=== PATIENT | male | born 1965 | race Two or more races ===

== ENCOUNTER 2017-07-21 08:59 | Emergency (ER) | payer BC ==
[2017-07-21 09:07] VITALS: BMI 31.0
[2017-07-21 09:11] VITALS: BP 138/97; PULSE 67; TEMP 97.8
[2017-07-21 09:20] LABS: PH,URINE 5.5 (4.5-8); URINE APPEARANCE Clear; URINE BILIRUBIN Negative (NEGATIVE); URINE BLOOD Negative (NEGATIVE); URINE GLUCOSE (UA) Negative (NEGATIVE); URINE KETONE Negative (NEGATIVE); URINE LEUK ESTERASE Negative (NEGATIVE); URINE NITRITE Negative (NEGATIVE); URINE PROTEIN Negative (NEGATIVE); URINE UROBILINOGEN 0.2 (0.2-1.0)
[2017-07-21 09:21] LABS: URINE COLOR YELLOW
[2017-07-21] MEDS ORDERED: KETOROLAC TROMETHAMINE 30 MG/1 ML VIAL IVPUSH ONE (09:25)
[2017-07-21] MEDS ORDERED: KETOROLAC TROMETHAMINE 60 MG/2 ML VIAL IM ONE (09:26)
[2017-07-21] MEDS ORDERED: KETOROLAC TROMETHAMINE 60 MG/2 ML VIAL ONE (09:27)
--- NOTE | 2017-07-21 09:29 | PDOC ---
History of Present Illness - General Chief Complaint: Pain, Acute Stated Complaint: left side pain Time Seen by Provider: 07/21/17 09:00 History Source: Patient Exam Limitations: No Limitations - History of Present Illness Travel History: No Initial Comments: 07/21/17 09:26 51y M hx of HTN, GERD presents with L flank pain. Pt states the pain is in the left LQ and occasionally radiates to the L flank. Pt denies any fever/chills, n/ v/d, hematuria, melena. Pt does note that the pain seems to be worse when he is moving but it does sometimes start when he is laying down. Pt enies any cp, sob , bauer, he works out and runs regularly. the pain has been intermittent for the past year , approx 2-3 times/month, lasts for a few hrs, but worsened last night when he was laying down. He also endorses feeling very gassy and couldnt pass jewel, but denies any n/v. 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 Past History - Past Medical History Allergies/Adverse Reactions: Allergies Allergy/AdvReac Type Severity Reaction Status Date / Time No Known Allergies Allergy Verified 07/21/17 09:19 Home Medications: Ambulatory Orders NK [No Known Home Medication] 07/21/17 COPD: No Kidney Stones: Yes - Suicide/Smoking/Psychosocial Hx Smoking History: Never smoked Hx Alcohol Use: No Drug/Substance Use Hx: No Substance Use Type: None Review of Systems - Review of Systems Able to Perform ROS?: Yes Comments:: 07/21/17 09:28 Constitutional - no reported Fever, Chills, HEENT: no reported vision changes, sore throat Respiratory: no reported cough, sob, hemoptysis Cardiac: no reported chest pain, palpitations, light headedness, leg swelling Abd/GI: +abd pain, no reported nausea, vomiting, blood per rectum, melena, diarrhea : no reported dysuria, frequency, discharge Musculskelatal - no reported back pain, joint swelling skin - no reported bruising, erythema, rash neurological: no reported headache, numbness, focal weakness, tingling, ataxia, hematologic: no reported anemia, easy bruising, easy bleeding *Physical Exam - Vital Signs Last Vital Signs Temp Pulse Resp BP Pulse Ox 97.8 F 67 18 138/97 100 07/21/17 09:00 07/21/17 09:00 07/21/17 09:00 07/21/17 09:00 07/21/17 09:00 - Physical Exam Comments: 07/21/17 09:28 GENERAL: The patient is awake, alert, and fully oriented, Nontoxic - in no acute distress. HEAD: Normocephalic, atraumatic. EYES: extraocular movements intact, sclera anicteric, conjunctiva clear. ENT: Normal voice, Moist mucous membranes. NECK: Normal range of motion, supple LUNGS: Breath sounds equal, clear to auscultation bilaterally. No wheezes, no rhonchi, no rales. HEART: Regular rate and rhythm, normal S1 and S2 without murmur, rub or gallop. ABDOMEN: no sigifnciant abd tenderness, mild tenderness on external obliques, no cva tenderness, no rebound/guarding EXTREMITIES: Normal range of motion, no edema. No clubbing or cyanosis. No cords, erythema, or tenderness. NEUROLOGICAL: No facial assymetry, Normal speech, PSYCH: Normal mood, normal affect. SKIN: Warm, Dry, normal turgor, ED Treatment Course - LABORATORY CBC & Chemistry Diagram: 07/21/17 09:25 07/21/17 09:25 - ADDITIONAL ORDERS Additional order review: Laboratory Results 07/21/17 09:10 Urine Color Yellow Urine Appearance Clear Urine pH 5.5 Ur Specific [place] >= 1.030 H Urine Protein Negative Urine Glucose (UA) Negative Urine Ketones Negative Urine Blood Negative Urine Nitrite Negative Urine Bilirubin Negative Urine Urobilinogen 0.2 Ur Leukocyte Esterase Negative Medical Decision Making - Medical Decision Making 07/21/17 09:29 differential includes kidney stones vs. msk strain/pain will ck labs, ua will give toradol will reassess 07/21/17 10:26 pts pain is improved labs unremarbkle ua neg beside high spec grav abd resassessed and is soft nontender. suspect possible msk, consider possilbe gas pains as pt states he was very gassy yesterday will recommend supportive therapy return precautions were discussed I discussed the physical exam findings, ancillary test results and final diagnoses with the patient. I answered all of the patient's questions. The patient was satisfied with the care received and felt comfortable with the discharge plan and treatment plan. The patient will call their primary care physician within 24 hours to arrange follow-up and will return to the Emergency Department with any new, persistent or worsening symptoms. *DC/Admit/Observation/Transfer Diagnosis at time of Disposition: Abdominal pain Qualifiers: Abdominal location: left lower quadrant Qualified Code(s): R10.32 - Left lower quadrant pain Strain of abdominal muscle Qualifiers: Encounter type: initial encounter Qualified Code(s): S39.011A - Strain of muscle, fascia and tendon of abdomen, initial encounter - Discharge Dispostion Disposition: HOME Condition at time of disposition: Improved Admit: No - Referrals Referrals: Luis Fragoso MD [Staff Physician] - Sotero Sims MD [Staff Physician] - - Patient Instructions Printed Discharge Instructions: DI for Abdominal Pain-Adult Additional Instructions: I suspect your pain yesterday may be due to muscle pain or gas pain. Take motrin or tylenol as needed for discomfort. Return to the emergency department immediately with ANY new, persistent or worsening symptoms including recurrent abdominal pain, fevers, vomiting, chest pain, shortness of breath or any other concerns. Stay well hydrated. You MUST call and follow up with your doctor within 3-4 days. Your emergency department visit is not complete without a followup with your doctor for reevaluation. Please make sure your doctor reviews the results of your emergency evaluation. Consider following up with a Industry Segment Specialist (I gave you a referral to Dr. Sims if you need) Print Language: BELARUSIAN - Post Discharge Activity
[2017-07-21 09:58] LABS: ALBUMIN 4.2 g/dl (3.5-5.0); ALK PHOS 84 U/L (32-92); ANION GAP 7 (8-16); BILIRUBIN,TOTAL 0.7 mg/dl (0.2-1.0); CALCIUM 9.4 mg/dl (8.4-10.2); CO2 27 mmol/L (22-28); GLUCOSE,RANDOM 100 mg/dl (74-106); SGOT/AST 23 U/L (10-42); SGPT/ALT 15 U/L (10-40); TOT PROT 7.1 g/dl (6.4-8.3)
[2017-07-21 10:05] LABS: BASO % 0.5 % (0-2.0); EOS % 4.6 % (0-4.5); MCH 29.4 pg (25.7-33.7); MCHC 33.5 g/dl (32.0-35.9); MEAN CELL VOLUME 87.7 fl (80-96); NEUT % 51.8 % (42.8-82.8); PLATELET COUNT 242 K/MM3 (134-434); RDW 12.4 % (11.9-15.9); WHITE BLOOD COUNT 6.6 K/mm3 (4.0-10.8)
== END 2017-07-21 10:36 | disposition home or self-care (01) ==
LOC: FER 08:59
PROC: 3E0233Z Introduction of Anti-inflammatory into Muscle, Percutaneous Approach (ICD-10-PCS; principal; 2017-07-21)
DX: S39.011A Strain of muscle, fascia and tendon of abdomen, initial encounter (principal); R10.32 Left lower quadrant pain; X58.XXXA Exposure to other specified factors, initial encounter; Y93.89 Activity, other specified; Y92.9 Unspecified place or not applicable; I10 Essential (primary) hypertension; K21.9 Gastro-esophageal reflux disease without esophagitis
CPT/HCPCS: 36415; 80053; 81003; 85025; 99282-25

== ENCOUNTER 2020-06-30 18:48 | Emergency (ER) | payer BC, OTHER ==
[2020-06-30 18:57] VITALS: BP 157/119; PULSE 92; TEMP 98.6; BMI 31.3
[2020-06-30] MEDS ORDERED: ACYCLOVIR 400 MG TABLET PO ONE (19:17)
[2020-06-30] MEDS ORDERED: ACYCLOVIR 400 MG TABLET ONE (19:19)
== END 2020-06-30 19:30 | disposition home or self-care (01) ==
LOC: FER 18:48
DX: B02.9 Zoster without complications (principal)
CPT/HCPCS: 99283-25